=== PATIENT | female | born 1955 | race Caucasian/White ===

== ENCOUNTER → 2016-05-11 08:17 | Outpatient (CLI) | payer BC ==
[2015-08-03 09:10] VITALS: BMI 22.4
[~2016-05-11 08:17] MED LIST: CALTRATE 600 M600 M1 PO; GABAPENTIN100 MG PO; HYDROCODON-ACE1 EAC7 PO; HYDROCODONE-APA1 TAB PO; MAGNESIUM GLUC500 M1 PO; MULTIPLE VITAMI1 TA1 PO; PERCOCET 10/3251 TA1 PO; PRILOSEC20 MG PO; PROAIR HFA8.5 GM INH; VITAMIN B-121000 MCG PO
== END | disposition home or self-care (01) ==
LOC: D.CT 08:17
DX: I70.213 Atherosclerosis of native arteries of extremities with intermittent claudication, bilateral legs (principal)

== ENCOUNTER → 2016-12-24 13:03 | Outpatient (CLI) | payer BC ==
[2015-08-03 09:10] VITALS: BMI 22.4
== END | disposition home or self-care (01) ==
LOC: D.MAMMO 13:00
DX: Z12.31 Encounter for screening mammogram for malignant neoplasm of breast (principal)

== ENCOUNTER → 2018-01-30 13:36 | Outpatient (CLI) | payer BC ==
[2015-08-03 09:10] VITALS: BMI 22.4
== END | disposition home or self-care (01) ==
LOC: D.MRI 13:36
DX: M54.16 Radiculopathy, lumbar region (principal)

== ENCOUNTER 2018-03-07 10:00 | Day surgery (SDC) | payer BC ==
[2018-03-06 15:50] LABS: BASOPHILS 0.1 % (0-2); EOSINOPHILS 0.6 % (0-7); HEMATOCRIT 42.4 % (36.0-48.0); HEMOGLOBIN 14.5 g/dL (12-16); IMMATURE GRANULOCYTES 0.3 % (0-5); LYMPHOCYTES 26.3 % (15-50); MCH 31.9 pg (26.0-34.0); MCHC 34.2 g/dL (31.0-37.0); MCV 93.4 fL (80.0-100.0); MEAN PLATELET VOLUME 11.6 fL (7.4-10.4); MONOCYTES 5.4 % (2-11); NEUTROPHILS 67.3 % (40-80); PLATELET COUNT 192 10x3/uL (130-400); RBC 4.54 10x6/uL (4.00-5.40); WBC 11.5 10x3/uL (4.8-10.8)
[2018-03-06 15:59] LABS: APTT 29.6 SECONDS (22.8-39.4); INR 1.02 (0.85-1.17); PROTIME 12.9 SECONDS (11.6-15.0)
[~2018-03-07] VITALS: Ht 172.7 cm; Wt 67.1 kg
--- NOTE | ~2018-03-07 | OP ---
PATIENT NAME: ALISSA DONATO MEDICAL RECORD: [id number] LOCATION:[facility] ADMISSION DATE: SURGEON: IGNACIA BREEN MD DATE OF OPERATION: 03/07/2018 PREOPERATIVE DIAGNOSIS: Lumbar spinal stenosis at L4-L5, right. POSTOPERATIVE DIAGNOSIS: Lumbar spinal stenosis at L4-L5, right, with foraminal stenosis. SURGEON: Ignacia Breen MD DESCRIPTION AND TECHNIQUE: After induction of general endotracheal anesthesia, the patient was placed prone on a Willie frame. Lumbar spine was prepped and draped in usual sterile fashion. Fluoroscopic x-ray and spinal needle localized the L4-L5 interspace on the right side. A stab incision was created with #11 blade. A series of dilators were used to advance the METRx retractor to the L4-L5 interspace on the right side. Microscope and Midas Ephraim drill were used to perform laminectomy, medial facetectomy, and foraminotomy at L4-L5 on the right. Hypertrophied ligamentum flavum was removed with Cloward rongeurs. Foraminotomy was carried out with Cloward rongeurs on the right at L4-L5. Following this, the L4 and L5 nerve roots were decompressed well. Meticulous hemostasis was maintained throughout the wound. Wound was irrigated with copious amounts of Ancef irrigant solution. The retractor was removed. The fascia was closed with 2-0 Vicryl suture. The subdermal layer was closed with 3-0 Vicryl suture. The skin was closed with bushra. A sterile dressing was applied to the wounds. The patient was awakened in good condition and taken to recovery. All counts were reported as correct. Estimated blood loss was minimal. TRANSINT:[id number] Voice Confirmation ID: [id number] DOCUMENT ID: [id number] IGNACIA BREEN MD CC: [id number] DICTATION DATE: 03/11/18 0952 [employer] SALES: 03/11/18 1137 [facility] 03/07/18 [place] [id number]
[~2018-03-07 10:00] MED LIST changes: +CENTRUM SILVER1 EAC3 PO; +OMEGA-3100 MG PO; +OMEPRAZOLE40 MG PO; +SUPER B COMPLE150 MG PO; +VITAMIN D31000 UNIT PO
[2018-03-07] MEDS ORDERED: TUMERIC (10:34)
[2018-03-07 10:39] VITALS: BP 148/75; Ht 172.7 cm; Wt 67.1 kg
== END 2018-03-07 15:55 | disposition home or self-care (01) ==
LOC: D.OPS 10:00 → D.PAN 12:00 → D.OPS 12:00 → D.PAN 14:30 → D.OPS 14:30
PROVIDERS: Anesthesiology
DX: M48.061 Spinal stenosis, lumbar region without neurogenic claudication (principal); Z01.812 Encounter for preprocedural laboratory examination

== ENCOUNTER → 2019-09-02 18:21 | Outpatient (CLI) | payer BC ==
[2018-03-07 10:39] VITALS: BMI 22.5
[~2019-09-02 18:21] MED LIST changes: +TUMERIC
[2019-09-02 19:06] LABS: ALBUMIN 3.9 g/dL (3.4-5.0); ALKALINE PHOSPHATASE 89 U/L (30-120); ALT (SGPT) 21 U/L (10-68); BILIRUBIN - TOTAL 0.42 mg/dL (0.2-1.3); CALC OSMOLALITY 277 mosm/kg (275-300); CARBON DIOXIDE 28.9 mmol/L (21.0-32.0); CHLORIDE - SERUM 105 mmol/L (98-107); CREATININE - SERUM 0.8 mg/dL (0.6-1.3); GLUCOSE 102 mg/dL (74-106); POTASSIUM - SERUM 4.4 mmol/L (3.5-5.1); PROTEIN - SERUM 6.7 g/dL (6.4-8.2); SODIUM 140 mmol/L (136-145); UREA NITROGEN 10 mg/dL (7-18); eGFR NON AFRICAN AMERICAN 77 mL/min (90-120)
[2019-09-02 19:07] LABS: HEMATOCRIT 48.1 % (36.0-48.0); HEMOGLOBIN 15.6 g/dL (12-16); MCH 30.9 pg (26.0-34.0); MCHC 32.4 g/dL (31.0-37.0); MCV 95.2 fL (80.0-100.0); MEAN PLATELET VOLUME 11.5 fL (7.4-10.4); PLATELET COUNT 205 10x3/uL (130-400); RBC 5.05 10x6/uL (4.00-5.40); WBC 7.8 10x3/uL (4.8-10.8)
[2019-09-02 21:53] LABS: EOSINOPHILS 1 % (0-7); LYMPHOCYTES 35 % (15-50); MONOCYTES 1 % (2-11); NEUTROPHILS 63 % (40-80); PLATELET ESTIMATE NORMAL
== END | disposition home or self-care (01) ==
LOC: D.LABREF 18:21
PROVIDERS: ATTEND Legal Medicine
DX: C18.7 Malignant neoplasm of sigmoid colon (principal)

== ENCOUNTER 2020-07-22 16:00 | Outpatient (CLI) | payer BC ==
[2018-03-07 10:39] VITALS: BMI 22.5
== END 2020-07-22 23:59 | disposition home or self-care (01) ==
LOC: D.MAMMO 16:00
PROVIDERS: ATTEND Family Medicine
DX: Z12.31 Encounter for screening mammogram for malignant neoplasm of breast (principal)